=== PATIENT | male | born 2000 | race Two or more races ===

== ENCOUNTER 2022-02-27 09:16 | Emergency (ER) | payer MEDICAID, OTHER ==
[~2022-02-27] VITALS: Ht 162.6 cm; Wt 73.9 kg
[2022-02-27 09:18] VITALS: BP 129/67
== END 2022-02-27 12:18 | disposition left against medical advice (07) ==
LOC: ER 09:16
DX: M25.562 Pain in left knee (principal); Z53.21 Procedure and treatment not carried out due to patient leaving prior to being seen by health care provider
CPT/HCPCS: 73562